=== PATIENT | female | born 1995 | race Caucasian/White ===

== ENCOUNTER 2017-07-18 20:03 | Emergency (ER) | payer SELFPAY ==
[~2017-07-18] VITALS: Ht 152.4 cm; Wt 67.0 kg
[2017-07-18 20:32] LABS: HEMATOCRIT 41.9 % (36.0-46.0); MCH 30.2 PG (29.0-34.0); MCHC 33.2 G/DL (30.0-36.0); MCV 90.9 FL (83-99); MEAN PLAT.VOLUME 10.5 uM^3 (9.5-12.4); PLATELET COUNT 165 K/uL (156-360); RBC DIS.WIDTH-CV 13.5 % (11.8-14.6); RBC DIS.WIDTH-SD 45.2 % (39-53); RED BLOOD COUNT 4.61 M/uL (3.80-5.20); WHITE BLOOD COUNT 7.5 K/uL (4.1-10.2)
[2017-07-18 20:41] LABS: CHLORIDE 104 mEq/L (99-109); POTASSIUM 4.2 mEq/L (3.7-5.4); SODIUM 139 mEq/L (136-147)
[2017-07-18 20:43] LABS: GLUCOSE 99 mg/dL (70-99)
[2017-07-18 20:44] LABS: ANION GAP 8 MEQ/L (2-14)
[2017-07-18 20:45] LABS: TOTAL BILIRUBIN 0.3 mg/dL (0.0-1.0)
[2017-07-18 20:47] LABS: ALKALINE PHOSPHATASE 56 IU/L (3-129)
[2017-07-18 20:48] LABS: UREA NITROGEN (BUN) 14 mg/dL (9-23)
[2017-07-18 20:50] LABS: GFR ESTIMATE (CALCULATED) > 59 mL/min/; LIPASE 27 U/L (1.0-51.0)
[2017-07-18 20:56] LABS: QUANTITATIVE HCG < 4.0 MIU/ML
[2017-07-18] MEDS ORDERED: ZOFRAN ODT4 MG PO (21:20)
[2017-07-18 21:35] VITALS: BP 112/62
[2017-07-18] MEDS ORDERED: BACLOFEN10 MG PO (21:35)
== END 2017-07-18 21:37 | disposition home or self-care (01) ==
LOC: EME 20:03
DX: R19.7 Diarrhea, unspecified (principal); R11.2 Nausea with vomiting, unspecified; F31.9 Bipolar disorder, unspecified; F41.9 Anxiety disorder, unspecified; F17.200 Nicotine dependence, unspecified, uncomplicated
CPT/HCPCS: 80053; 81003; 83690; 84702; 85027; 99281; 99283